=== PATIENT | female | born 1995 | race Caucasian/White ===

== ENCOUNTER 2023-11-03 05:40 | Inpatient (IN) | payer OTHER ==
[~2023-11-03] VITALS: Ht 172.7 cm; Wt 80.7 kg
[2023-11-03] MEDS ORDERED: CALCIUM CARBONATE 500 MG CHEW PO PRN ×3 (05:45→23:30)
[2023-11-03] MEDS ORDERED: OXYTOCIN/DEXTROSE 5% 20 UNITS/100 ML BAG IV SCH (05:45)
[2023-11-03] MEDS ORDERED: MAGNESIUM HYDROXIDE/AL HYDROX 30 ML CUP PO PRN ×3 (05:45→23:30)
[2023-11-03] MEDS ORDERED: LACTATED RINGER'S 1,000 ML IV SCH (06:00)
[2023-11-03 06:25] LABS: AMPHETAMINES, URINE NEGATIVE (NEGATIVE); BARBITURATES, URINE NEGATIVE (NEGATIVE); BENZODIAZEPINE, URINE NEGATIVE (NEGATIVE); BUPRENORPHINE, URINE NEGATIVE (NEGATIVE); CANNABINOID, URINE NEGATIVE (NEGATIVE); COCAINE, URINE NEGATIVE (NEGATIVE); ECSTASY, URINE NEGATIVE (NEGATIVE); FENTANYL, URINE NEGATIVE (NEGATIVE); METHADONE, URINE NEGATIVE (NEGATIVE); OPIATES, URINE NEGATIVE (NEGATIVE); OXYCODONE, URINE NEGATIVE (NEGATIVE); PHENCYCLIDINE, URINE NEGATIVE (NEGATIVE)
[2023-11-03 06:25] LABS: HEMATOCRIT 37.4 % (35.0-50.0); HEMOGLOBIN 12.8 g/dL (12.0-18.0); MCH 30.9 (27-36); MCHC 34.2 g/dl (30-36); MCV 90.3 fl (81-99); RBC 4.14 M/ul (4.3-5.7); RDW 15.5 (10.5-15.0)
[2023-11-03 06:31] VITALS: BP 129/79
[2023-11-03 07:01] LABS: ABO A; RH POSITIVE
[2023-11-03 07:03] LABS: ANTIBODY SCREEN NEGATIVE
[2023-11-03] MEDS ORDERED: OXYTOCIN/0.9 % SODIUM CHLORIDE 500 ML IV SCH ×2 (10:15→23:30)
[2023-11-03] MEDS ORDERED: fentaNYL citrate 100 MCG/2 ML VIAL ONE ×3 (11:45→22:08)
[2023-11-03] MEDS ORDERED: ROPIVACAINE 0.2% 200 ML BAG ONE (11:45)
[2023-11-03] MEDS ORDERED: LACTATED RINGER'S 500 ML IV PRN (12:15)
[2023-11-03] MEDS ORDERED: ePHEDrine sulfate 5 MG/ML SYRINGE IV PRN (12:15)
[2023-11-03] MEDS ORDERED: ROPIVACAINE 0.2% 200 ML BAG EPIDURAL SCH (12:15)
[2023-11-03] MEDS ORDERED: LACTATED RINGER'S 2,000 ML IV ONE (12:15)
[2023-11-03] MEDS ORDERED: Ropivacaine HCl 0.5% 30 ML VIAL ONE (18:52)
[2023-11-03] MEDS ORDERED: SODIUM CHLORIDE 0.9% 20 ML IV ONE (18:52)
--- NOTE | 2023-11-03 19:02 | PR ---
[facility] [address] [place] [address] Signed Progress Notes IP Datetime Report Generated by CPN: 11/03/2023 19:02 PROGRESS NOTES: [id number] Impression: Normal Progression of Labor; Reassuring Heart Rate Plan: Continue Present Management VITAL SIGNS: [id number] Vital Signs: Reviewed; Within Normal Limits EXAM: [id number] Dilatation: 5.0 Effacement: 80 Station: -2 Contractions: q 2-3 min MEMBRANES: [id number] Comments: Pt seen and evaluted. Doing very well. Uncomfortable w/ epidural on pitocin. Epidural rebolused by anesthesia. Reviewed labor progress and reassuring FHT. Discussed anticipated course of labor and delivery. All questions answered. FETUS A: [id number] FHR Baseline: 145 Variability: Moderate 6-25bpm Accelerations: 15X15 Decelerations: Variable FHR Category: Category II Presentation: Vertex Comments on Fetus A: No evidence of metabolic acidosis FETUS B: [id number] Signing Physician: Arpan Hobson DO Copies: ~ *Electronically Signed* 11/03/231901 ARPAN HOBSON (IRMA) DO PATIENT NAME: JONATHON MONTANO PROGRESS NOTE DATE OF : 95 PHYSICIAN: ARPAN HOBSON) DO RPT #: [id number] REPORT IS CONFIDENTIAL AND NOT TO BE RELEASED WITHOUT AUTHORIZATION
--- NOTE | 2023-11-03 21:01 | PR ---
[facility] [address] [place], [place] [address] Signed Progress Notes IP Datetime Report Generated by CPN: 11/03/2023 21:01 PROGRESS NOTES: [id number] Impression: Normal Progression of Labor; Reassuring Heart Rate Procedures: Sterile Vag Exam Plan: Continue Present Management Informed Consent Obtain: Vaginal Delivery VITAL SIGNS: [id number] Vital Signs: Reviewed; Within Normal Limits EXAM: [id number] Dilatation: 6.0 Effacement: 80 Station: -2 Contractions: q 2-3 min MEMBRANES: [id number] Comments: S: Patient resting comfortably in bed. No concerns or complaints. History and notes reviewed. O: AFVSS A/P: Patient well. Normal progression of labor. Discussed with franciatent there may come a time when we would consider placement of IUPC or FSE. She gave verbal understandinig. All questions were answered. Will continue to monitor. FETUS A: [id number] FHR Baseline: 145 Variability: Moderate 6-25bpm Accelerations: 15X15 Decelerations: Variable FHR Category: Category II Presentation: Vertex Comments on Fetus A: No evidence of metabolic acidosis FETUS B: [id number] Signing Physician: Ruby Lozada MD Copies: ~ *Electronically Signed* 11/03/232100 RUBY LOZADA MD PATIENT NAME: JONATHON MONTANO PROGRESS NOTE DATE OF : 95 PHYSICIAN: RUBY LOZADA MD RPT #: [id number] REPORT IS CONFIDENTIAL AND NOT TO BE RELEASED WITHOUT AUTHORIZATION
--- NOTE | 2023-11-03 22:03 | PR ---
[facility] [address] [place], [place] [address] Signed Progress Notes IP Datetime Report Generated by ELISSA: 11/03/2023 22:03 PROGRESS NOTES: [id number] Impression: Normal Progression of Labor Procedures: Intrauterine Pressure Catheter; Scalp Electrode; Sterile Vag Exam Plan: Continue Present Management Informed Consent Obtain: Vaginal Delivery VITAL SIGNS: [id number] Vital Signs: Reviewed; Within Normal Limits EXAM: [id number] Dilatation: 7.0 Effacement: 80 Station: -1 Contractions: q 2-3 min MEMBRANES: [id number] Comments: S: Patient well. Currently in bed vomiting and c/o feeling more pressure with contractions. Episodes of lost heart rate on monitor. O: AFVSS A/P: Patient well. Pain and vomiting likely secondary to descent. Will continue to montior. FSE and IUPC palced at this time to better assess FHR and strength of contractions. LEAF STRIPPER to come and redose epidural for patient comfort. Recheck in 2 hours and sooner as needed. FETUS A: [id number] FHR Baseline: 145 Variability: Moderate 6-25bpm Accelerations: 15X15 Decelerations: Variable FHR Category: Category II Presentation: Vertex Comments on Fetus A: No evidence of metabolic acidosis FETUS B: [id number] Signing Physician: Ruby Lozada MD Copies: ~ *Electronically Signed* 11/03/23 3347 RUBY LOZADA MD PATIENT NAME: JONATHON MONTANO PROGRESS NOTE DATE OF : 95 PHYSICIAN: RUBY LOZADA MD RPT #: [id number] REPORT IS CONFIDENTIAL AND NOT TO BE RELEASED WITHOUT AUTHORIZATION
[2023-11-03] MEDS ORDERED: dexmedeTOMIDine HCl 200 MCG/2 ML VIAL ONE (22:23)
[2023-11-03] MEDS ORDERED: LIDOCAINE HCL 2% 5 ML SDV ONE (22:35)
[2023-11-03] MEDS ORDERED: HYDROCODONE/ACETA 5/325 TAB PO PRN (23:30)
[2023-11-03] MEDS ORDERED: OXYCODONE/APAP 5/325 TAB PO PRN (23:30)
[2023-11-03] MEDS ORDERED: MAGNESIUM HYDROXIDE 30 ML UDC PO PRN (23:30)
[2023-11-03] MEDS ORDERED: WITCH HAZEL/GLYCERIN 1 EA PAD TOP PRN (23:30)
[2023-11-03] MEDS ORDERED: BENZOCAINE 60 ML AEROSOL TOP PRN (23:30)
[2023-11-03] MEDS ORDERED: OXYCODONE HCL 5 MG TAB PO PRN (23:30)
[2023-11-03] MEDS ORDERED: HYDROCORTISONE ACETATE 25 MG SUPP PR PRN (23:30)
[2023-11-03] MEDS ORDERED: ACETAMINOPHEN 325 MG TAB PO PRN (23:30)
[2023-11-03] MEDS ORDERED: IBUPROFEN 600 MG TAB PO PRN (23:30)
[2023-11-04 05:35] LABS: HEMATOCRIT 35.6 % (35.0-50.0); HEMOGLOBIN 11.9 g/dL (12.0-18.0); MCH 30.6 (27-36); MCHC 33.5 g/dl (30-36); MCV 91.3 fl (81-99); RBC 3.9 M/ul (4.3-5.7); RDW 15.7 (10.5-15.0)
[2023-11-04] MEDS ORDERED: FERROUS SULFATE 325 MG TAB PO SCH (08:00)
[2023-11-04] MEDS ORDERED: SENNOSIDES/DOCUSATE 1 EA TAB PO SCH (09:00)
--- NOTE | 2023-11-04 09:02 | PR ---
[facility] [address] [place], [place] [address] Signed PP Progress Notes Datetime Report Generated by CPN: 11/04/2023 09:02 SUBJECTIVE: [id number] Pain: Within Normal Limits Nausea/Vomiting: Denies Flatus: Yes Bowel Movement: No Vital Signs: [id number] Vital Signs: Reviewed; Within Normal Limits Cardiovascular: Not Done Respiratory: Not Done Abdomen/Uterus: Normal Lochia: Normal Vulva/Perineum: Not Done Breasts: Not Done CVA Tenderness: Not Done Extremities: Abnormal Incision: Not Applicable Progress: Normal IMPRESSION/PLAN/PROCEDURES: [id number] Impression: Normal Progression Plan: Continue Present Management Procedures: None Progress Notes: S: 28 yo s/p vaginal delivery. PPD#1. Doing well. She denies GEORGE, CP, SOB, F/C, N/V, RUQ pain, changes in vision, vaginal discharge. Tolerating regular diet, voiding on own, pain controlled, not yet ambulating. Signing Physician: Ruby Lozada MD Copies: ~ *Electronically Signed* 11/04/23901 RUBY LOZADA MD PATIENT NAME: JONATHON MONTANO PROGRESS NOTE DATE OF : 95 PHYSICIAN: RUBY LOZADA MD RPT #: [id number] REPORT IS CONFIDENTIAL AND NOT TO BE RELEASED WITHOUT AUTHORIZATION
--- NOTE | 2023-11-05 09:32 | PR ---
[facility] [address] [place], [place] [address] Signed PP Progress Notes Datetime Report Generated by CPN: 11/05/2023 09:32 SUBJECTIVE: [id number] Pain: Within Normal Limits Nausea/Vomiting: Denies Flatus: Yes Bowel Movement: Yes Vital Signs: [id number] Vital Signs: Reviewed; Within Normal Limits Cardiovascular: Not Done Respiratory: Not Done Abdomen/Uterus: Normal Lochia: Normal Vulva/Perineum: Not Done Breasts: Not Done CVA Tenderness: Not Done Extremities: Normal Incision: Not Applicable Progress: Normal Exam Comments: Right leg still numb from epidural IMPRESSION/PLAN/PROCEDURES: [id number] Impression: Normal Progression Plan: Discharge Procedures: None Progress Notes: S: 28 yo s/p vaginal delivery. PPD#2. Doing well. Denies GEORGE, CP, SOB, F/C, N/V, RUQ pain, changes in vision, vaginal discharge. Tolerating regular diet, ambulating, voidind on own, pain controlled. O: AFVSS Abd: Soft, non-tender. Fundus firm and below umbilicus. Musc: PLAZA. A/P: 28 yo s/p vaginal delivery. Doing well. Meeting all hospital milestones. Will discharge home today. Signing Physician: Ruby Allen MD *Electronically Signed* 11/05/23 0932 RUBY ALLEN MD PATIENT NAME: JONATHON MONTANO PROGRESS NOTE DATE OF : 95 PHYSICIAN: RUBY ALLEN MD RPT #: [id number] REPORT IS CONFIDENTIAL AND NOT TO BE RELEASED WITHOUT AUTHORIZATION
== END 2023-11-05 11:50 | disposition home or self-care (01) | DRG 807 ==
LOC: FBC 05:40 → EDSTATUS 05:40 → FBCO 12:16 → FBC 11-05 11:50
PROVIDERS: ADMIT Obstetrics & Gynecology; ATTEND Obstetrics & Gynecology
PROC: 10E0XZZ Delivery of Products of Conception, External Approach (ICD-10-PCS; principal; 2023-11-03)
PROC: 10907ZC Drainage of Amniotic Fluid, Therapeutic from Products of Conception, Via Natural or Artificial Opening (ICD-10-PCS; 2023-11-03)
PROC: 0HQ9XZZ Repair Perineum Skin, External Approach (ICD-10-PCS; 2023-11-03)
PROC: 10H07YZ Insertion of Other Device into Products of Conception, Via Natural or Artificial Opening (ICD-10-PCS; 2023-11-03)
PROC: 4A1H7CZ Monitoring of Products of Conception, Cardiac Rate, Via Natural or Artificial Opening (ICD-10-PCS; 2023-11-03)
PROC: 10H073Z Insertion of Monitoring Electrode into Products of Conception, Via Natural or Artificial Opening (ICD-10-PCS; 2023-11-03)
PROC: 4A1HXCZ Monitoring of Products of Conception, Cardiac Rate, External Approach (ICD-10-PCS; 2023-11-03)
DX: O69.81X0 Labor and delivery complicated by cord around neck, without compression, not applicable or unspecified (principal); Z37.0 Single live birth; Z3A.39 39 weeks gestation of pregnancy; O70.0 First degree perineal laceration during delivery
CPT/HCPCS: 01960; 36415; 80307; 85027; 86850; 86900; 86901; A9270; J2001; J2795; J3010; J7121